=== PATIENT | female | born 1935 | race Caucasian/White ===

== ENCOUNTER → 2016-09-08 | Outpatient (CLI) | payer MEDICARE, BC ==
[~2016-09-08] MED LIST: ADVIL200 M1 PO; ARIPIPRAZOLE10 MG PO; ASPIRIN LO-DOSE81 MG PO; BENICAR 20 MG20 MG PO; CELEBREX200 MG PO; CITRACAL950 MG PO; COLACE100 MG PO; FISH OIL1000 MG PO; FLOMAX0.4 MG PO; GLUCOSAMINE &1 EAC1 PO; GLUCOSAMINE HC500 MG PO; LEXAPRO10 MG PO; LOPRESSOR25 MG PO; MYRBETRIQ50 MG PO; TYLENOL EXTRA500 MG PO; VESICARE5 MG PO; ZOCOR80 MG PO
--- NOTE | ~2016-09-08 | PUL ---
PATIENT'S NAME: BECKA LARSEN [facility] AGE: 81 Y [address] ROOM: [place] [address] LOCATION: [facility] ADMIT DATE: 09/08/2016 Pulmonary DISCHARGE DATE: FAMILY PHYSICIAN: DENA HALE MD ATTENDING PHYSICIAN: DENA HALE NAME OF PROCEDURE: Sleep Study PROCEDURE DATE: 09/08/2016 TECH: PRAVEEN Andres TEST #: [facility] [place]# [id number] TECHNICAL PARAMETERS: The patient was studied using International 10/20 measuring system. While the patient was studied, there was continuous monitoring of EEG (8 leads), EOG (2 leads), EKG (3 leads), submental EMG (3 leads), tibial (4 leads), respiratory inductive plethysmography (RIP) for thoracic and abdominal effort, oral and nasal airflow with a thermocouple and pressure transducer, and oximetry. The electronic test technician also performed visual and auditory observations noting things like body position, patient's status, breath sounds, artifact, snoring level and patient comments. Continuous sound was monitored using a 2-way speaker system and video monitoring was performed using an infrared camera. Review of the entire study was performed epoch by epoch utilizing a single epoch and multiple epoch capability sleep system. MEDICAL HISTORY: The patient is an is 81-year-old woman with daytime sleepiness and snoring. SLEEP STAGE SUMMARY: The patient was studied for 450 minutes of which she slept 264 minutes. She fell asleep in 42 minutes and slept for 59% of the night. Sleep architecture revealed a decline in slow wave and REM sleep. RESPIRATORY SUMMARY: Oxygen saturations ranged from 83-92%. There were 42 apneas and 24 hypopneas for an apnea/hypopnea index mildly elevated at 15 events per hour. The majority of the events occurred too late in the study to allow for initiation of CPAP. EKG SUMMARY: Average heart rate 63 beats per minute. ACTIVITY: No clinically relevant periodic limb movements were noted. SUMMARY: Mild to borderline moderate obstructive sleep apnea. PLAN: Patient will receive results from the ordering provider. PATIENT'S NAME: BECKA LARSEN [facility] AGE: 81 Y [address] ROOM: [place] [address] LOCATION: [facility] ADMIT DATE: 09/08/2016 Pulmonary DISCHARGE DATE: FAMILY PHYSICIAN: DENA HALE MD ATTENDING PHYSICIAN: DENA HALE SHERRY ALEMAN MD [facility] /[id number] dtt: 09/27/16 1301 , Sherry Aleman dtd: 09/12/16 1152
== END | disposition disaster alternative care site (69) ==
LOC: GSLP 20:20
DX: G47.10 Hypersomnia, unspecified (principal); G47.36 Sleep related hypoventilation in conditions classified elsewhere; G47.33 Obstructive sleep apnea (adult) (pediatric)